=== PATIENT | female | born 1945 | race American Indian/Alaskan Native ===

== ENCOUNTER 2017-07-17 12:56 | Inpatient (IN) | payer MEDICARE ==
[2017-07-17] MEDS ORDERED: VASELINE LIP THERAPY TP PRN (13:23)
[2017-07-17] MEDS ORDERED: ARTIFICIAL TEARS OPHTH OINT OU PRN (13:23)
[2017-07-17] MEDS: ADRENALIN 8 MG in NACL 0.9% 250ML 242 ML IV SCH (13:40)
[2017-07-17 13:52] LABS: Alanine Aminotransferase 24 units/L (7-56); Albumin/Globulin Ratio 0.9 %; Alkaline Phosphatase 60 units/L (35-129); Blood Urea Nitrogen 9 mg/dL (7-17); Calcium 10.8 mg/dL (8.4-10.2); Chloride 97.9 mmol/L (98-107); Glucose 347 mg/dL (65-100); Potassium 5.7 mmol/L (3.6-5.0); Sodium 134 mmol/L (137-145); Total Protein 6.4 g/dL (6.3-8.2)
[2017-07-17] MEDS ORDERED: LEVOPHED DRIP 4 MG/NS 250 ML 4 MG/250 ML BAG IV ONE ×2 (13:52→16:29)
--- NOTE | 2017-07-17 13:55 | Emergency Department Report ---
HPI - General Chief Complaint: Cardiac Arrest/CPR Time Seen by Provider: 07/17/17 13:44 - HPI HPI: PATIENT BROUGHT TO ER BY EMS, CPR IN PROGRESS, IN ER, PATIENT HAD COMBI TUBE IN PLACE, PEA ON MONITOR. PER EMS PATIENT CALLED 911, STATING THAT SHE COULDN'T BREATH, BUT WHEN EMS ARRIVED TO RESIDENCE, NO ONE ANSWERED THE DOOR, SO EMS, BROKE WINDOWS TO GET INTO THE HOUSE AND FOUND PATIENT WITH IMPENDING RESPIRATORY FAILURE AND BEFORE TREATMENT COULD BE INITIATED PATIENT SUFFERED CARDIAC ARREST. NO FAMILY AT BEDSIDE TO PROVIDE HISTORY. COMBI TUBE EXCHANGE SOON REASONABLY POSSIBLE BY ER M.D, 7.5 ETT PLACED PATIENT HAD I/O IN RIGHT FEMORAL, NOT FLUSHING WELL, PATIENT PLACED A RIGHT FOOT IV 20 G, AND ER. M.D PLACED RIGHT FEMORAL VEIN CENTRAL LINE, TRIPLE LUMEN, IN A STERILE MANNER, WITHOUT COMPLICATIONS. PULSE WAS REGAINED IN ER, AFTER INITIAL ACLS, BUT 5 MINUTES LATER, PATIENT BECAME BRADYCARDIC, ATROPINE WAS GIVEN, BUT SHE BECAME PULSELESS, ACLS WAS RESTARTED, DURING WHICH A PULSE WAS FOUND. AFTER XRAY WAS OBTAINED, I LOOKED AT THE PICTURES AT THE BEDSIDE, AND FOUND THAT THE TUBE WAS IN AND ADVANCED POSITION, ETT WAS PULLED ABOUT 4CMS. I DISCUSSED AT LENGTH WITH DAUGHTERS, GRANDDAUGHTER AND GRANDSON AT BEDSIDE THE POOR PROGNOSIS OF THIS PATIENT. ED Past Medical Hx - Past Medical History Hx Hypertension: Yes Hx COPD: Yes - Social History Smoking Status: Unknown if ever smoked ED Review of Systems ROS: Stated complaint: CARDIAC ARREST Other details as noted in HPI Comment: Unobtainable due to pts medical conditions Physical Exam - Physical Exam Vital Signs: Vital Signs 07/17/17 07/17/17 07/17/17 13:03 13:06 13:10 Pulse Rate 43 L 146 H Respiratory 14 12 20 Rate Blood Pressure 156/77 111/74 O2 Sat by Pulse 43 L 29 L Oximetry 07/17/17 07/17/17 07/17/17 13:15 13:20 13:26 Pulse Rate 104 H 91 H 57 L Respiratory 27 H 19 28 H Rate Blood Pressure 116/55 116/55 174/144 O2 Sat by Pulse 94 86 36 L Oximetry 07/17/17 07/17/17 13:30 13:36 Pulse Rate 83 100 H Respiratory 88 H 18 Rate Blood Pressure 48/32 163/85 O2 Sat by Pulse 100 99 Oximetry Physical Exam: GEN: SEVERE DISTRESS HEENT: PUPILS FIXED AND DILATED LUNGS- ETT, IN PLACE, MECH VENT CV: SINUS TACH ABD: SOFT, NT, ND, POS BS EXT: NO CLUBBING, CYANOSIS, RIGHT FEMORAL CENTRAL LINE AREA, D/C/I NEURO- NO GAG, PUPILS FIXED AND DILATED, OFF SEDATION, NO MOTOR, OR SENSORY RESPONSE ED Course Vital Signs 07/17/17 07/17/17 07/17/17 13:03 13:06 13:10 Pulse Rate 43 L 146 H Respiratory 14 12 20 Rate Blood Pressure 156/77 111/74 O2 Sat by Pulse 43 L 29 L Oximetry 07/17/17 07/17/17 07/17/17 13:15 13:20 13:26 Pulse Rate 104 H 91 H 57 L Respiratory 27 H 19 28 H Rate Blood Pressure 116/55 116/55 174/144 O2 Sat by Pulse 94 86 36 L Oximetry 07/17/17 07/17/17 13:30 13:36 Pulse Rate 83 100 H Respiratory 88 H 18 Rate Blood Pressure 48/32 163/85 O2 Sat by Pulse 100 99 Oximetry - Central Line Placement Right IJ Consent Obtained: emergent situation Time Out Performed: Yes Patient Placed on Monitor/Pulse Ox: Yes Central Line Prep: Povidone-Iodine 1%, Chlorhexidine scrub, sterile drapes applied Local Anesthesia Used: Lidocaine 1% Central Line Lumen Inserted: triple Bloods Obtained for Lab: Yes Central Line Position: good blood return, all ports aspirated, flus, sutured in place with 3-0 Dressing Applied: Tegaderm, sterile gauze/tape Patient Tolerated Procedure: well Complications: none - Intubation Time Out Performed: Yes Sedative: none Laryngoscope: Pedraza Size: 3 ET Tube Size: 7.5 Tube Secured Location: lips Tube Placement Confirmation: visualized tube passing t Patient Tolerated Procedure: well Intubation Complications: difficult intubation, hypotention ED Medical Decision Making - Lab Data Result diagrams: 07/17/17 14:53 07/17/17 13:18 Critical Care Time: Yes Critical care time in (mins) excluding proc time.: 60 Critical care attestation.: If time is entered above; I have spent that time in minutes in the direct care of this critically ill patient, excluding procedure time. ED Disposition Clinical Impression: Cardiac arrest Disposition: [id number] OP ADMIT IP TO THIS HOSP Is pt being admited?: Yes Does the pt Need Aspirin: No Condition: Stable Referrals: PRIMARY CARE, [Primary Care Provider] - 3-5 Days
[2017-07-17 13:57] LABS: Anion Gap 36 mmol/L; Carbon Dioxide 6 mmol/L (22-30)
[2017-07-17] MEDS ORDERED: NACL 0.9% 500 ML IV SCH (14:00)
[2017-07-17] MEDS: LEVOPHED DRIP 4 MG/NS 250 ML 4 MG/250 ML BAG IV SCH ×4 (14:00→23:32)
[2017-07-17] MEDS ORDERED: DIPRIVAN 10 MG/ML 1,000 MG/100 ML BOTTLE IV SCH (14:00)
[2017-07-17] MEDS ORDERED: SODIUM BICARBONATE 150 MEQ in D5W 1,000 ML IV ONE ×2 (14:01→23:21)
[2017-07-17] MEDS ORDERED: NACL 0.9% 1000 ML 1,000 ML IV ONE ×2 (14:03→15:35)
[2017-07-17 14:04] LABS: INR 1.79 (0.87-1.13)
[2017-07-17 14:05] LABS: Partial Thromboplastin Time 40.5 Sec. (24.2-36.6)
--- NOTE | 2017-07-17 14:07 | Admit Criteria Form ---
Admission Criteria Documentation: RESPIRATORY FAILURE GRG Clinical Indications for Admission to Inpatient Care (Place 'X' for any and all applicable criteria): Hospital admission is needed for appropriate care of the patient because of acute respiratory failure or insufficiency as indicated by 1 or more of the following (1)(2)(3)(4)(5)(6)(7)(8 ): [ X]I. Mechanical ventilation needed (acute invasive or noninvasive) [ ]II. Severe ventilation deficit as indicated by 1 or more of the following ( 9) [ ]a) Uncompensated Respiratory acidosis (pH < 7.35 and PaCO2 > 40 mmHg (5.3 kPa)) [ ]b) Airflow measurements < 25% of predicted (eg, PEFR < 100 L/min) [ ]c) FVC < 15 mL/kg of ideal body weight, or 50% decrease in vital capacity from baseline [ ]III. Noncardiac pulmonary edema not resolving with rapid emergency treatment (8) [ ]IV. Severe respiratory distress as indicated by 1 or more of the following: [ ]a) Severe tachypnea (respiratory rate greater than 30, greater than 45 for 6-month-old, greater than 60 for ) [ ]b) Severe hypoxemia (partial pressure of oxygen less than 50 mm Hg ( 6.7 kPa) on greater than 50% oxygen or partial pressure of oxygen to FIO2 ratio less than 200) [ ]c) Mental status deterioration from respiratory disease [ ]V. Airway obstruction or inadequate protection [A](10)(11) The original [employer] content created by [employer] has been revised. The portions of the content which have been revised are identified through the use of italic text or in bold, and [employer] has neither reviewed nor approved the modified material. All other unmodified content is copyright [employer]. Please see references footnoted in the original [employer] edition 2017 Admission Criteria Met: Yes
--- NOTE | 2017-07-17 14:26 | XRay Report ---
PORTABLE CHEST INDICATION: Post intubation. COMPARISON: None similar. FINDINGS: Portable, frontal chest radiograph demonstrates mild cardiomegaly, aortic knob calcifications, EKG leads and a defibrillator pad overlying the right lung. Diffuse hazy interstitial infiltrates/congestion noted throughout both lungs, right more than left. Slight peripheral left mid lung horizontal atelectasis may also be present. Endotracheal tube at the priscilla with its tip somewhat directed towards the left. Esophagogastric tube extends into the stomach and beyond the inferior radiographic margin. Intact bones. CONCLUSION: 1. Low-lying endotracheal tube that may be retracted by approximately 5 cm for more appropriate placement. 2. Other findings, including diffuse bilateral infiltrates and mild cardiomegaly, as described. I phoned the above results to Dr. Tate in the ER, 2:15 PM, 07/17/2017. Thank you for the opportunity to participate in this patient's care.
[2017-07-17 14:38] LABS: Mean Corpuscular HGB Conc 25 % (30-34); Mean Corpuscular Volume 92 fl (79-97); Platelet Count 208 K/mm3 (140-440); Red Blood Count 2.36 M/mm3 (3.65-5.03); White Blood Count 12.2 K/mm3 (4.5-11.0)
[2017-07-17 14:44] LABS: Hematocrit 21.8 % (30.3-42.9); Mean Corpuscular Hemoglobin 23 pg (28-32); Red Cell Distribution Width 20.5 % (13.2-15.2)
[2017-07-17 14:45] LABS: Hemoglobin 5.5 gm/dl (10.1-14.3)
--- NOTE | 2017-07-17 14:52 | XRay Report ---
PORTABLE CHEST INDICATION: Tube placement after pull back. COMPARISON: 1:25 PM earlier today. FINDINGS: Portable, frontal chest radiograph, 2:32 PM, 07/17/2017 demonstrates endotracheal tube retraction with its tip approximately 1 cm above the priscilla. Poorer inspiration with slight greater prominence of hazy bilateral interstitial infiltrates/congestion, right more than left. Left retrocardiac opacity with obscured left hemidiaphragm also now not excluded. Possible azygous lobe. Stable remainder exam. CONCLUSION: 1. Interval ET tube retraction, as described. Additional retraction by approximately 2 cm may be performed for more optimal placement, if so warranted. 2. Other findings, including stable bilateral infiltrates/congestion and questionable left basilar increased opacity. Thank you for the opportunity to participate in this patient's care.
[2017-07-17] MEDS ORDERED: NACL 0.9% 500 ML 500 ML IV ONE (14:57)
[2017-07-17] MEDS ORDERED: LEVOPHED DRIP 4 MG/NS 250 ML 4 MG/250 ML BAG IV SCH (15:00)
[2017-07-17] MEDS ORDERED: INTROPIN DRIP 800 MG/D5W 250 ML 800 MG/250 ML BAG IV ONE (15:02)
--- NOTE | 2017-07-17 15:03 | History and Physical Report ---
History of Present Illness Chief complaint: Unresponsive History of present illness: 72 YO Female with HTN, COPD presents to ED for evaluation. Pt is unresponsive. Pt called EMS today stating that she could not breathe. Upon arrival EMS found patient down and in acute respiratory distress. Pt experienced cardiac arrest and lost consciousness. Pt intubated and placed on vent support and transported to [facility]. Pt seen and evaluated in ED and found to be in acute respiratory failure and septic shock. Pt treated with pressor support. Pt unable to provide history. Pt daughter is at bedside during exam and interview and provides history. No reports of fever,chills, CP, NVD, trauma, falls, unintentional weight loss, night sweats, or recent foreign travel, or ill contacts. Past History Past Medical History: COPD, hypertension Past Surgical History: hysterectomy Social history: , Lives alone. denies: smoking, alcohol abuse, prescription drug abuse, IV drug use Family history: hypertension Medications and Allergies Allergies Allergy/AdvReac Type Severity Reaction Status Date / Time Penicillins Allergy Swelling Verified 07/05/14 10:19 Active Meds: Active Medications Hydrophilic Ointment (Vaseline Lip Therapy) 1 applic TP Q2HR PRN PRN Reason: Dry Lips Epinephrine 8 mg/ Sodium (Chloride) 250 mls @ 3.75 mls/hr IV TITR CHIRAG; 2 MCG/ MIN PRN Reason: Protocol Last Admin: 07/17/17 13:40 Dose: 10 mcg/min, 18.75 mls/hr Propofol (Diprivan 10 Mg/Ml) 1,000 mg in 100 mls @ 2.722 mls/hr IV TITR CHIRAG; 5 MCG/KG/MIN PRN Reason: Protocol Sodium Bicarbonate 150 meq/ (Dextrose) 1,150 mls @ 75 mls/hr IV ONCE.ED ONE Stop: 07/18/17 05:20 Last Admin: 07/17/17 15:00 Dose: 75 mls/hr Norepinephrine (Levophed Drip 4 Mg/Ns 250 Ml) 4 mg in 250 mls @ 7.5 mls/hr IV TITR CHIRAG; 2 MCG/MIN PRN Reason: Protocol Last Titration: 07/17/17 14:15 Dose: 30 mcg/min, 112.5 mls/hr Dopamine HCl/Dextrose (Intropin Drip 800 Mg/D5w 250 Ml) 800 mg in 250 mls @ 3.402 mls/hr IV TITR ONE; 2 MCG/KG/MIN PRN Reason: Protocol Stop: 07/20/17 16:31 Multi-Ingred Cream/Lotion/Oil/Oint (Artificial Tears Ophth Oint) 1 applic OU Q4HR PRN PRN Reason: Dry Eye(s) Sodium Chloride (Nacl 0.9% 500 Ml) 1 ml IV DIRECT CHIRAG Review of Systems ROS unobtainable: due to mental status Exam - Constitutional Vitals: Temp Pulse Resp BP Pulse Ox 51 L 20 63/27 95 07/17/17 14:58 07/17/17 14:13 07/17/17 14:58 07/17/17 14:58 General appearance: Present: severe distress - Neck Neck: Present: supple, normal ROM - Respiratory Respiratory effort: labored Respiratory: bilateral: diminished - Cardiovascular Heart Sounds: Present: S1 & S2. Absent: rub, click - Extremities Extremities: pulses symmetrical, No edema Extremity abnormal: edema Peripheral Pulses: within normal limits - Abdominal General gastrointestinal: Present: soft, non-tender, non-distended, normal bowel sounds Female genitourinary: Present: normal - Integumentary Integumentary: Present: clear, dry, clammy, decreased turgor - Musculoskeletal Musculoskeletal: generalized weakness - Psychiatric Psychiatric: no intact judgment & insight, no memory intact - Neurologic Neurologic: focal deficits, no gait normal Results - Labs CBC & Chem 7: 07/17/17 14:53 07/17/17 13:18 Labs: Abnormal lab results 07/17/17 07/17/17 07/17/17 Range/Units 13:03 13:18 13:33 WBC (4.5-11.0) K/mm3 RBC (3.65-5.03) M/mm3 Hgb (10.1-14.3) gm/dl Hct (30.3-42.9) % MCH (28-32) pg MCHC (30-34) % RDW (13.2-15.2) % PT 21.7 H (12.2-14.9) Sec. INR 1.79 H (0.87-1.13) APTT 40.5 H (24.2-36.6) Sec. Chloride 97.9 L (98-107) mmol/L Carbon Dioxide 6 L* (22-30) mmol/L Glucose 347 H (65-100) mg/dL POC Glucose 391 H (70-105) Lactic Acid (0.7-2.0) mmol/L Calcium 10.8 H (8.4-10.2) mg/dL NT-Pro-B Natriuret Pep 3554 H (0-900) pg/mL Albumin 3.0 L (3.9-5) g/dL 07/17/17 07/17/17 Range/Units 13:33 14:06 WBC 12.2 H (4.5-11.0) K/mm3 RBC 2.36 L (3.65-5.03) M/mm3 Hgb 5.5 L* (10.1-14.3) gm/dl Hct 21.8 L (30.3-42.9) % MCH 23 L (28-32) pg MCHC 25 L (30-34) % RDW 20.5 H (13.2-15.2) % PT (12.2-14.9) Sec. INR (0.87-1.13) APTT (24.2-36.6) Sec. Chloride (98-107) mmol/L Carbon Dioxide (22-30) mmol/L Glucose (65-100) mg/dL POC Glucose (70-105) Lactic Acid 17.20 H* (0.7-2.0) mmol/L Calcium (8.4-10.2) mg/dL NT-Pro-B Natriuret Pep (0-900) pg/mL Albumin (3.9-5) g/dL Assessment and Plan - Patient Problems (1) Sepsis Current Visit: Yes Status: Acute Qualifiers: Sepsis type: S Plan to address problem: Sepsis Protocol: IV Abx, IVF, serial lactate level, monitor uop q shift, blood cultures, IV pressor suport, Poor prognosis discussed with family. (2) Acute respiratory failure Current Visit: Yes Status: Acute Qualifiers: Respiratory failure complication: R Plan to address problem: Pulmonary consulted, wean vent as tolerated, SBT in AM, (3) Anemia Current Visit: Yes Status: Acute Qualifiers: Anemia type: A Iron deficiency anemia type: I Vitamin B12 deficiency anemia type: V Folate deficiency anemia type: F Bone marrow failure anemia type: B Hemolytic anemia type: H Other causes of anemia: O Chronic kidney disease stage: C Plan to address problem: PRBC transfusion, repeat CBC (4) CHF (congestive heart failure) Current Visit: Yes Status: Acute Qualifiers: Congestive heart failure type: C Congestive heart failure chronicity: C Plan to address problem: Supportive care, Cardiology consulted, continue ionotropic support, Echo, (5) Cardiac arrest Current Visit: Yes Status: Acute Plan to address problem: Admit to ICU/telemetry, cardiology consulted, ionotropic support, (6) Lactic acid acidosis Current Visit: Yes Status: Acute Plan to address problem: treat sepsis, iVF, supportive care,serial lactic acid levels. (7) DVT prophylaxis Current Visit: Yes Status: Acute
[2017-07-17 15:06] LABS: Hematocrit 25.7 % (30.3-42.9); Hemoglobin 6.8 gm/dl (10.1-14.3)
[2017-07-17 15:06] LABS: ISTAT Base Excess -29; ISTAT HCO3 6.9; ISTAT PCO2 54.6 (35-45); ISTAT PH 6.709 (7.35-7.45); ISTAT PO2 146 (80-105); ISTAT SO2 94; ISTAT TCO2 9
[2017-07-17] MEDS ORDERED: PROVENTIL IH PRN (15:25)
[2017-07-17] MEDS ORDERED: VANCOMYCIN VIAL IV ONE (15:31)
[2017-07-17 15:37] LABS: Blastocytes % (Manual) 0 %
[2017-07-17 15:38] LABS: Anisocytosis 1+; Hypochromasia 1+; Tear Drop Cells 1+
[2017-07-17 15:39] LABS: Elliptocytes Few; Ovalocytes 1+; Schistocytes Rare
[2017-07-17 15:40] LABS: Diff Status Complete; Platelet Estimate Consistent w Auto
[2017-07-17] MEDS ORDERED: VANCOMYCIN PHARMACY TO DOSE IV SCH (16:00)
[2017-07-17] MEDS ORDERED: NACL 0.9% 1000 ML IV ONE (16:00)
[2017-07-17] MEDS ORDERED: VANCOMYCIN 1,500 MG in NACL 0.9% 500 ML 500 ML IV SCH (17:00)
[2017-07-17] MEDS ORDERED: SODIUM BICARBONATE IV ONE ×2 (19:50→21:00)
[2017-07-17] MEDS ORDERED: XYLOCAINE CARDIAC IV ONE (19:50)
[2017-07-17] MEDS ORDERED: INTROPIN DRIP 800 MG/D5W 250 ML IV ONE (19:50)
[2017-07-17] MEDS ORDERED: ATROPINE 0.1% (CARDIAC) ONE (19:50)
[2017-07-17] MEDS ORDERED: ADRENALIN ONE (19:50)
[2017-07-17] MEDS ORDERED: CALCIUM CHLORIDE IV ONE (19:50)
[2017-07-17] MEDS ORDERED: SODIUM BICARBONATE IV STA (20:20)
[2017-07-17] MEDS: INTROPIN DRIP 800 MG/D5W 250 ML 800 MG/250 ML BAG IV SCH (21:30)
[2017-07-17 22:01] LABS: ISTAT Base Excess -12; ISTAT HCO3 17.8; ISTAT PCO2 57.5 (35-45); ISTAT PH 7.099 (7.35-7.45); ISTAT PO2 86 (80-105); ISTAT SO2 92; ISTAT TCO2 20
[2017-07-18] MEDS: LEVOPHED DRIP 4 MG/NS 250 ML 4 MG/250 ML BAG IV SCH ×2 (01:42→04:21)
[2017-07-18] MEDS: ADRENALIN 8 MG in NACL 0.9% 250ML 242 ML IV SCH (02:22)
[2017-07-18] MEDS ORDERED: NEO-SYNEPHRINE 100 MG in NACL 0.9% 90 ML IV SCH (03:45)
[2017-07-18] MEDS: INTROPIN DRIP 800 MG/D5W 250 ML 800 MG/250 ML BAG IV SCH (04:48)
[2017-07-18] MEDS ORDERED: ADRENALIN ONE (06:33)
[2017-07-18 06:39] LABS: ISTAT Base Excess -9; ISTAT HCO3 20.6; ISTAT PCO2 61.1 (35-45); ISTAT PH 7.135 (7.35-7.45); ISTAT PO2 51 (80-105); ISTAT SO2 73; ISTAT TCO2 22
[2017-07-18 06:50] VITALS: BP 49/23
--- NOTE | 2017-07-18 07:05 | Event Note ---
Date: 07/18/17 CODE BLUE called Initial rhythm PEA ACLS protocol was initiated, patient was given 3 epinephrine without ROSC time of 0643 Family was notified
[2017-07-20 12:05] LABS: ISTAT Base Excess TNR; ISTAT HCO3 TNR; ISTAT PCO2 TNR (35-45); ISTAT PH TNR (7.35-7.45); ISTAT PO2 TNR (80-105); ISTAT SO2 TNR
[2017-07-20 12:06] LABS: ISTAT TCO2 TNR
== END 2017-07-18 11:00 | DRG 871 ==
LOC: ED 12:56 → CC1 15:25
PROVIDERS: ADMIT Internal Medicine; ATTEND Internal Medicine
PROC: 4A033R1 Measurement of Arterial Saturation, Peripheral, Percutaneous Approach (ICD-10-PCS; principal; 2017-07-17)
PROC: 5A12012 Performance of Cardiac Output, Single, Manual (ICD-10-PCS; 2017-07-17)
PROC: 5A1935Z Respiratory Ventilation, Less than 24 Consecutive Hours (ICD-10-PCS; 2017-07-17)
PROC: 0BH17EZ Insertion of Endotracheal Airway into Trachea, Via Natural or Artificial Opening (ICD-10-PCS; 2017-07-17)
PROC: 30233N1 Transfusion of Nonautologous Red Blood Cells into Peripheral Vein, Percutaneous Approach (ICD-10-PCS; 2017-07-17)
DX: A41.9 Sepsis, unspecified organism (principal); J96.01 Acute respiratory failure with hypoxia; R65.21 Severe sepsis with septic shock; I50.9 Heart failure, unspecified; D64.9 Anemia, unspecified; I46.9 Cardiac arrest, cause unspecified; I11.0 Hypertensive heart disease with heart failure; J44.9 Chronic obstructive pulmonary disease, unspecified; Z90.710 Acquired absence of both cervix and uterus; Z88.0 Allergy status to penicillin; Z82.49 Family history of ischemic heart disease and other diseases of the circulatory system
CPT/HCPCS: 36415; 36600; 71010; 80053; 82140; 82550; 82803; 82962; 83880; 84484; 85007; 85014; 85018; 85025; 85610; 85730; 86403; 86850; 86900; 86901; 86920; 87040; 87070; 87205; 92950; 93005; 93010; 94002; 96361; 96365; 96375; J0171; J0461; J1265; J2001; J2370; J3370; J7030; J7040; J7050; J7070; P9016